=== PATIENT | female | born 1950 | race Two or more races ===

== ENCOUNTER 2017-07-30 21:23 | Emergency (ER) | payer OTHER ==
[~2017-07-30] VITALS: Ht 170.2 cm; Wt 86.2 kg
[2017-07-30] MEDS ORDERED: VANCOMYCIN 1GM/250ML 250 ML IV ONE (21:45)
[2017-07-30 22:15] LABS: Basophils # (auto) 0 uL; Basophils % (auto) 0.4 % (0.0-2.0); Eosinophils # (auto) 0.2 uL; Eosinophils % (auto) 2.1 % (0.0-7.0); Hematocrit 37.2 % (36.0-46.0); Hemoglobin 12.5 g/dL (12.2-16.2); Lymphocytes # (auto) 2.5 uL; Lymphocytes % (auto) 28.7 % (10.0-50.0); Mean Corpuscular Hemoglobin 29.8 pg (28.0-32.0); Mean Corpuscular Hgb Conc. 33.6 g/dL (32.0-36.0); Mean Corpuscular Volume 88.7 fL (80.0-100.0); Monocytes # (auto) 0.8 uL; Neutrophils # (auto) 5.3 uL; Neutrophils % (auto) 59.8 % (37.0-80.0); Platelet Count (auto) 193 10^3/uL (140-450); Red Cell Distribution Width 13.4 % (11.8-14.3); White Blood Cell 8.9 10^3/uL (4.4-10.8)
[2017-07-30 22:29] LABS: Potassium 3.7 mmol/L (3.5-5.1)
[2017-07-31] MEDS ORDERED: LEVOFLOXACIN 500 MG TAB PO ONE (00:30)
[2017-07-31 00:35] VITALS: BP 147/92
== END 2017-07-31 01:04 | disposition home or self-care (01) ==
LOC: ER 21:23
DX: L03.211 Cellulitis of face (principal); I48.91 Unspecified atrial fibrillation; J45.909 Unspecified asthma, uncomplicated; E78.5 Hyperlipidemia, unspecified; Z88.6 Allergy status to analgesic agent; Z88.8 Allergy status to other drugs, medicaments and biological substances
CPT/HCPCS: 36415; 70450; 70486; 80048; 85025; 87040; 96365; 96366; 99285; J3370